=== PATIENT | female | born 1985 | race African-American/Black ===

== ENCOUNTER 2016-10-24 00:55 | Emergency (ER) | payer OTHER ==
[2016-10-24 03:27] VITALS: BP 136/89
== END 2016-10-24 03:27 | disposition home or self-care (01) ==
LOC: ED 00:55
DX: G43.909 Migraine, unspecified, not intractable, without status migrainosus (principal)
CPT/HCPCS: J1885; J3030

== ENCOUNTER 2018-04-10 09:51 | Emergency (ER) | payer MEDICAID ==
[~2018-04-10] VITALS: Ht 170.2 cm; Wt 125.2 kg
[2018-04-10 09:53] VITALS: Ht 170.2 cm; Wt 125.2 kg
[2018-04-10 12:38] VITALS: BP 147/92
== END 2018-04-10 12:38 | disposition home or self-care (01) ==
LOC: ED 09:51
DX: Z11.3 Encounter for screening for infections with a predominantly sexual mode of transmission (principal)
CPT/HCPCS: 87491; 87591; J0696

== ENCOUNTER 2018-09-05 09:51 | Emergency (ER) | payer SELFPAY ==
[~2018-09-05] VITALS: Ht 170.2 cm; Wt 128.8 kg
[2018-09-05 09:56] VITALS: BP 156/94; Ht 170.2 cm; Wt 128.8 kg
== END 2018-09-05 10:50 | disposition home or self-care (01) ==
LOC: ED 09:51
DX: H66.91 Otitis media, unspecified, right ear (principal)

== ENCOUNTER 2019-09-01 14:57 | Emergency (ER) | payer OTHER ==
[~2019-09-01] VITALS: Ht 172.7 cm; Wt 137.9 kg
[2019-09-01 15:03] VITALS: Ht 172.7 cm; Wt 137.9 kg
[2019-09-01 16:00] VITALS: BP 146/82
== END 2019-09-01 16:00 | disposition home or self-care (01) ==
LOC: ED 14:57
DX: T78.40XA Allergy, unspecified, initial encounter (principal); X58.XXXA Exposure to other specified factors, initial encounter
CPT/HCPCS: J1100

== ENCOUNTER 2020-01-03 11:16 | Emergency (ER) | payer OTHER ==
[~2020-01-03] VITALS: Ht 172.7 cm; Wt 139.7 kg
[2020-01-03 11:20] VITALS: Ht 172.7 cm; Wt 139.7 kg
[2020-01-03 12:59] VITALS: BP 166/74
== END 2020-01-03 12:59 | disposition home or self-care (01) ==
LOC: ED 11:16
DX: S00.262A Insect bite (nonvenomous) of left eyelid and periocular area, initial encounter (principal); E66.01 Morbid (severe) obesity due to excess calories; Z68.42 Body mass index [BMI] 45.0-49.9, adult; Z98.890 Other specified postprocedural states; W57.XXXA Bitten or stung by nonvenomous insect and other nonvenomous arthropods, initial encounter; Y93.89 Activity, other specified; Y92.89 Other specified places as the place of occurrence of the external cause; Y99.8 Other external cause status